=== PATIENT | female | born 1965 | race Caucasian/White ===

== ENCOUNTER 2017-07-07 11:34 | Emergency (ER) | payer OTHER ==
[~2017-07-07] VITALS: Ht 152.4 cm; Wt 66.4 kg
[~2017-07-07 11:34] MED LIST: ALBINS/ NEB; BSP/10 PO; CHLO1TAB PO; CHLO50TA6 PO; CITA40TA4 PO; CLON1TAB3 PO; DXP/75 PO; IMIP50TA3 PO; IMT50 PO; LPT40 PO; POTA1POW PO; PRAZ5CAP2 PO; RBX500 PO; RMRS/45 PO; SPRIN/30 INH; TYL325X PO; VNTHFA/IN INH
[2017-07-07 11:38] VITALS: TEMP 36.7; Ht 152.4 cm; Wt 66.4 kg
--- NOTE | 2017-07-07 12:31 | DIAGNOSTIC IMAGING REPORT ---
R FOOT MIN 3 VIEWS ROUTINE CLINICAL HISTORY: 52 years-old Female presenting with R foot pain. TECHNIQUE: Frontal, oblique, and lateral views of the right foot were obtained. COMPARISON: None. FINDINGS: Irregularity of the medial base of the first metatarsal. Additionally nondisplaced fractures of the second and third metatarsals evident. No gross widening of the interval at the bases of the first and second metatarsals to suggest a Lisfranc injury. Soft tissue swelling over the medial dorsum of the foot. IMPRESSION: Nondisplaced fractures of the bases of the first through third metatarsals. No malalignment at this time to suggest radiographic evidence of Lisfranc ligament injury. Electronically signed by: José Manuel Chen M.D. 07/07/2017 12:29 PM Dictated Date/Time: 07/07/2017 12:27 PM
[2017-07-07] MEDS ORDERED: MECL1TAB42 PO (12:51)
[2017-07-07] MEDS ORDERED: HYDR-5688 PO (12:51)
[2017-07-07] MEDS ORDERED: HYDROCODONE/ACETAMIN 5/325MG TAB PO STA (12:55)
[2017-07-07 13:06] VITALS: BP 127/92; PULSE 70; O2SAT 100
--- NOTE | 2017-07-07 21:16 | EMERGENCY ROOM VISIT NOTE ---
History First contact with patient: 11:44 Chief Complaint: FOOT PAIN Stated Complaint: SEVERE RIGHT FOOT PAIN History of Present Illness The patient is a 52 year old female who presents to the Emergency Room with complaints of severe right foot pain. The patient reports that she just moved to [place] from [place]. The patient reports history of vertigo. She reports that she did not have any meclizine left from her move. She has been experiencing dizzy symptoms consistent with vertigo. The patient reports that she fell last Saturday, and was seen at the [place] emergency department where an extensive workup was performed, including x-rays of the foot which showed "one bone fracture". The patient was dispensed a postop shoe, and instructed to follow-up with orthopedics for further management. The patient reports that she was unable to find a local PCP by Saturday. She plans to go to the walk-in clinic at a local [facility] office tomorrow. The patient reports that she was provided a prescription for Percocet which is upsetting her stomach. She reports that she has taken hydrocodone in the past with fewer side effects. The patient reports prior chronic pain issues, but denies being under any pain management contract in [place]. The patient reports that she cannot use crutches because of her vertigo, and has to walk on the foot. She rates her discomfort a 9 out of 10. She denies any other injuries from her fall that were not evaluated at the [place] emergency department. Review of Systems 10 system review was performed and was negative except for pertinent positives and negatives as indicated in history of present illness Past Medical/Surgical History Medical Problems: (1) Arthritis (2) Asthma (3) Bronchitis (4) Chest pain (5) Chronic back pain (6) COPD (chronic obstructive pulmonary disease) (7) Pneumonia Family History FH: cancer FH: diabetes mellitus FH: heart disease FHx: lung disease Social History Smoking Status: Current Every Day Smoker Alcohol Use: none Marital Status: other Housing Status: lives alone Occupation Status: unemployed, disabled Current/Historical Medications Scheduled Atorvastatin (Lipitor), 40 MG PO DAILY Buspirone HCl (Buspirone HCl), 20 MG PO TID Chlorpromazine Hcl (Thorazine), 50 MG PO QAM Chlorpromazine Hcl (Chlorpromazine Hcl), 200 MG PO HS Citalopram (Citalopram Hydrobromide), 40 MG PO QAM Doxepin Hcl (Doxepin), 75 MG PO HS Imipramine HCl (Imipramine HCl), 100 MG PO HS Methocarbamol (Methocarbamol), 500 MG PO TID Mirtazapine (Mirtazapine), 45 MG PO HS Potassium Chloride Pwd (Klor-Con Pwd), 20 MEQ PO BID Prazosin Hcl (Prazosin), 10 MG PO HS Tiotropium [place] (Spiriva Handihaler), 1 PUFF INH DAILY Scheduled PRN Acetaminophen (Tylenol), 650 MG PO Q4H PRN for Pain or Fever Albuterol Hfa (Ventolin Hfa), 2 PUFFS INH UD PRN for SOB/Wheezing Albuterol Sulf (Proventil 0.083% 2.5MG/3ML), 2.5 MG NEB TID PRN for SOB/Wheezing Clonazepam (Klonopin), 1 MG PO QID PRN for Anxiety Hydrocodone/Acetaminophen 5MG/325MG ([place] 5MG/325MG), 1-2 TABLET PO Q4H PRN for Pain Meclizine Hcl (Meclizine Hcl), 1 TAB PO TID PRN for Dizziness or Vertigo Sumatriptan Succinate (Sumatriptan Succinate), 50 MG PO UD PRN for Migraine Physical Exam Vital Signs Date Time Temp Pulse Resp B/P (MAP) Pulse Ox O2 Delivery O2 Flow Rate FiO2 07/07/17 13:06 70 17 127/92 100 07/07/17 11:38 36.7 93 18 129/70 94 Room Air Physical Exam CONSTITUTIONAL: Healthy and well nourished. Alert and oriented X 3 with positive affect. Patient appears in mild to moderate discomfort. HEENT: Normocephalic, atraumatic. Pupils equal, round and reactive. NECK: Full active range of motion without discomfort. RESPIRATORY: Clear to auscultation bilaterally with no wheezing, crackles, rhonchi or stridor. CARDIOVASCULAR: Regular rate and rhythm with no murmurs, rubs or gallops. GASTROINTESTINAL: Bowel sounds present in all quadrants. Soft and nontender to palpation. MUSCULOSKELETAL: Examination of the right foot shows notable edema and ecchymosis. She is tender throughout the entire medial midfoot region. She has no focal tenderness to palpation about the ankle with negative anterior draw. No tenderness to palpation of the phalanges, calcaneus, Achilles tendon or proximal leg. Pedal pulses are intact. INTEGUMENTARY: No rash or other significant dermatologic conditions noted. NEUROLOGIC: Right foot and toes are sensory intact. Medical Decision & Procedures ER Provider Diagnostic Interpretation: My interpretation of right foot x-rays shows fractures at the base of the first , second and third metatarsals. Radiologist report is as follows: R FOOT MIN 3 VIEWS ROUTINE CLINICAL HISTORY: 52 years-old Female presenting with R foot pain. TECHNIQUE: Frontal, oblique, and lateral views of the right foot were obtained. COMPARISON: None. FINDINGS: Irregularity of the medial base of the first metatarsal. Additionally nondisplaced fractures of the second and third metatarsals evident. No gross widening of the interval at the bases of the first and second metatarsals to suggest a Lisfranc injury. Soft tissue swelling over the medial dorsum of the foot. IMPRESSION: Nondisplaced fractures of the bases of the first through third metatarsals. No malalignment at this time to suggest radiographic evidence of Lisfranc ligament injury. Medications Administered Medications (Trade) Dose Ordered Sig/Elie Route Start Time Stop Time Status Last Admin Dose Admin Acetaminophen/ Hydrocodone Bitart ([place] 5/325 Tab) 1 tab ONE STAT PO 07/07/17 12:55 07/07/17 12:57 DC 07/07/17 13:04 1 TAB ED Course Patient history and physical exam were performed. Nurse's notes were reviewed. Vital signs were reviewed and and were normal. The patient refused any analgesics on initial exam. X-rays of the right foot shows fractures at the base of the first through third metatarsals. The patient reports that she is unable to use crutches because of her vertigo. Fracture boot was therefore applied. The patient reports that she will follow-up tomorrow with her family doctor for orthopedic referral. She did request prescriptions for meclizine and hydrocodone. These were provided for the patient. She was also encouraged to elevate the foot for swelling and pain. The patient voiced understanding of all discharge instructions, and rated her pain a 7 out of 10 at the time of discharge. The patient was administered hydrocodone just prior to discharge. Medical Decision [place] Drug Monitoring Program Search Results: patient reviewed within database, no issues identified Medication Reconcilliation Current Medication List: was personally reviewed by me Blood Pressure Screening Patient's blood pressure: Normal blood pressure Impression Primary Impression: Multiple closed fractures of metatarsal bone of right foot Additional Impression: History of vertigo Departure Information Prescriptions Hydrocodone/Acetaminophen 5MG/325MG ([place] 5MG/325MG) Tab 1-2 TABLET PO Q4H Y for Pain, #15 TAB For Initial Treatment Prov: Lopez Marshall PA 07/07/17 Meclizine Hcl (MECLIZINE HCL) 25 Mg Tab 1 TAB PO TID Y for Dizziness or Vertigo, #15 TAB Prov: Lopez Marshall PA 07/07/17 Referrals Ruddy Grajeda PA-C (PCP) Patient Instructions My [facility] Problem Qualifiers Primary Impression: Multiple closed fractures of metatarsal bone of right foot Encounter type: initial encounter Qualified Codes: S92.301A - Fracture of unspecified metatarsal bone(s), right foot, initial encounter for closed fracture
== END 2017-07-07 13:07 | disposition home or self-care (01) ==
LOC: C.EDB 11:36 → C.EDD 13:07
DX: S92.301A Fracture of unspecified metatarsal bone(s), right foot, initial encounter for closed fracture (principal); R42 Dizziness and giddiness; W19.XXXA Unspecified fall, initial encounter; M19.90 Unspecified osteoarthritis, unspecified site; J45.909 Unspecified asthma, uncomplicated; J44.9 Chronic obstructive pulmonary disease, unspecified; F17.200 Nicotine dependence, unspecified, uncomplicated

== ENCOUNTER 2017-08-14 17:36 | Emergency (ER) | payer OTHER ==
[~2017-08-14] VITALS: Ht 152.4 cm; Wt 60.7 kg
[~2017-08-14 17:36] MED LIST changes: +HYDR-5688 PO; +MECL1TAB42 PO
[2017-08-14 17:53] VITALS: TEMP 36.9; Ht 152.4 cm; Wt 60.7 kg
[2017-08-14] MEDS ORDERED: DEXAMETHASONE INJ 10 MG in SYRINGE 0 ML IV STA (18:12)
[2017-08-14] MEDS ORDERED: PROCHLORPERAZINE 5 MG/ML 2 ML VIAL IV STA (18:12)
[2017-08-14] MEDS ORDERED: SODIUM CHLORIDE 0.9% 1000ML 1,000 ML IV STA (18:12)
[2017-08-14] MEDS ORDERED: DiphenhydrAMINE HCL 50 MG/ML VIAL IV STA (18:12)
[2017-08-14] MEDS ORDERED: MAGNESIUM SULFATE 1GM / D5W 1 GM BAG IV STA (18:12)
[2017-08-14] MEDS ORDERED: CIPROFLOXACIN 500 MG TAB PO STA (18:16)
[2017-08-14] MEDS ORDERED: OFLOXACIN 0.3% OP SOLN 5 ML BTL OP STA (18:16)
--- NOTE | 2017-08-14 18:21 | EMERGENCY ROOM VISIT NOTE ---
History Report prepared by Karel: Partha Silveira Under the Supervision of: Dr. Jc Lackey M.D. First contact with patient: 18:04 Chief Complaint: HEAD PAIN Stated Complaint: HEAD,NECK,AND JAW PAIN History of Present Illness The patient is a 52 year old female who presents to the Emergency Room with complaints of constant right ear pain beginning four months ago. The patient states that she has been having right ear pain, as well as jaw pain, neck pain, and the inability to hear out of her right ear for the last four months. She also complains of ringing in her right ear that feels like "someone in stabbing her." She rates her pain as a 9/10. She notes that she randomly woke up one morning with right ear ringing four months ago. She reports that she had a CT done two weeks ago which showed a lump on her left lymph node. The patient states that she has an appointment with oncology tomorrow. She notes that she has an ENT appointment in a week. She reports that she has not been able to eat or sleep for the last five days due to her pain. The patient states that she took Tylenol two and a half hours ago with no relief of her symptoms. She notes that she smokes cigarettes. Source of History: patient Onset: four months ago Position: ear (right) Symptom Intensity: 9/10 Timing: constant Associated Symptoms: + neck pain Note: The patient also complains of jaw pain, the inability to hear out of her right ear, and right ear ringing. Review of Systems See HPI for pertinent positives & negatives. A total of 10 systems reviewed and were otherwise negative. Past Medical & Surgical Medical Problems: (1) Arthritis (2) Asthma (3) Bronchitis (4) Chest pain (5) Chronic back pain (6) COPD (chronic obstructive pulmonary disease) (7) Ectopic (8) Pneumonia Surgical Problems: (1) History of appendectomy (2) History of cholecystectomy (3) History of hysterectomy Family History FH: cancer FH: diabetes mellitus FH: heart disease FHx: lung disease Gallbladder disease Seizures Social History Smoking Status: Current Every Day Smoker Alcohol Use: none Marital Status: other Housing Status: lives alone Occupation Status: disabled Current/Historical Medications Scheduled Acetaminophen (Acetaminophen Extra Stren), 1,000 MG PO q3-4h Buspirone HCl (Buspirone HCl), 20 MG PO TID Chlorpromazine Hcl (Chlorpromazine Hcl), 200 MG PO HS Ciprofloxacin Hcl (Cipro), 1 TAB PO BID Citalopram (Citalopram Hydrobromide), 40 MG PO QAM Mirtazapine (Mirtazapine), 45 MG PO HS Prazosin Hcl (Prazosin), 10 MG PO HS Tiotropium [place] (Spiriva Handihaler), 1 PUFF INH DAILY Scheduled PRN Albuterol Hfa (Ventolin Hfa), 2 PUFFS INH UD PRN for SOB/Wheezing Clonazepam (Klonopin), 1 MG PO QID PRN for Anxiety Meclizine Hcl (Meclizine Hcl), 25 MG PO TID PRN for vertigo Sumatriptan Succinate (Sumatriptan Succinate), 100 MG PO UD PRN for Migraine Allergies Coded Allergies: Ibuprofen (Unverified Allergy, Severe, SWELLING/SHORTNESS OF BREATH, ) Latex1 -Allergic Contact Dermititis (Unverified Allergy, Intermediate, ) Aspirin (Verified Allergy, Unknown, 08/14/17) Ketorolac Tromethamine (Verified Allergy, Unknown, swelling, nausea, ) Naproxen (Verified Allergy, Unknown, 08/14/17) Quetiapine (Unverified Allergy, Unknown, U/K, 08/14/17) Sulfa Drugs (Verified Allergy, Unknown, 08/14/17) Sulfamethoxazole (Verified Allergy, Unknown, 08/14/17) Trimethoprim (Verified Allergy, Unknown, 08/14/17) Physical Exam Vital Signs Date Time Temp Pulse Resp B/P (MAP) Pulse Ox O2 Delivery O2 Flow Rate FiO2 08/14/17 21:32 73 16 136/74 97 Room Air 08/14/17 20:13 67 15 109/66 97 Room Air 08/14/17 20:10 73 08/14/17 18:58 75 17 97/56 98 Room Air 08/14/17 17:53 36.9 88 16 104/68 96 Room Air Physical Exam GENERAL: Awake, alert, well-appearing, in no acute distress HENT: Normocephalic, atraumatic. Oropharynx unremarkable. No evidence of meningitis or encephalitis on exam, right ear canal is injected and inflamed. EYES: Normal conjunctiva. Sclera non-icteric. NECK: Supple. No nuchal rigidity. FROM. No JVD. RESPIRATORY: Clear to auscultation. CARDIAC: Regular rate, normal rhythm. Extremities warm and well perfused. Pulses equal. ABDOMEN: Soft, non-distended. No tenderness to palpation. No rebound or guarding. No masses. RECTAL: Deferred. MUSCULOSKELETAL: Chest examination reveals no tenderness. The back is symmetrical on inspection without obvious abnormality. There is no CVA tenderness to palpation. No joint edema. LOWER EXTREMITIES: Calves are equal size bilaterally and non-tender. No edema. No discoloration. NEURO: Normal sensorium. No sensory or motor deficits noted. SKIN: No rash or jaundice noted. Medical Decision & Procedures Laboratory Results 08/14/17 18:55 Red Blood Count 4.11, Mean Corpuscular Volume 85.6, Mean Corpuscular Hemoglobin 28.5, Mean Corpuscular Hemoglobin Concent 33.2, Mean Platelet Volume 9.5, Neutrophils (%) (Auto) 55.1, Lymphocytes (%) (Auto) 33.7, Monocytes (%) (Auto) 9.4, Eosinophils (%) (Auto) 1.0, Basophils (%) (Auto) 0.4, Neutrophils # (Auto) 4.24, Lymphocytes # (Auto) 2.59, Monocytes # (Auto) 0.72, Eosinophils # (Auto) 0.08, Basophils # (Auto) 0.03 08/14/17 18:55 Test 08/14/17 18:55 08/14/17 19:15 White Blood Count 7.69 K/uL (4.8-10.8) Red Blood Count 4.11 M/uL (4.2-5.4) Hemoglobin 11.7 g/dL (12.0-16.0) Hematocrit 35.2 % (37-47) Mean Corpuscular Volume 85.6 fL (80-100) Mean Corpuscular Hemoglobin 28.5 pg (25-34) Mean Corpuscular Hemoglobin Concent 33.2 g/dl (32-36) Platelet Count 234 K/uL (130-400) Mean Platelet Volume 9.5 fL (7.4-10.4) Neutrophils (%) (Auto) 55.1 % Lymphocytes (%) (Auto) 33.7 % Monocytes (%) (Auto) 9.4 % Eosinophils (%) (Auto) 1.0 % Basophils (%) (Auto) 0.4 % Neutrophils # (Auto) 4.24 K/uL (1.4-6.5) Lymphocytes # (Auto) 2.59 K/uL (1.2-3.4) Monocytes # (Auto) 0.72 K/uL (0.11-0.59) Eosinophils # (Auto) 0.08 K/uL (0-0.5) Basophils # (Auto) 0.03 K/uL (0-0.2) RDW Standard Deviation 55.5 fL (36.4-46.3) RDW Coefficient of Variation 17.9 % (11.5-14.5) Immature Granulocyte % (Auto) 0.4 % Immature Granulocyte # (Auto) 0.03 K/uL (0.00-0.02) Anion Gap 5.0 mmol/L (3-11) Est Creatinine Clear Calc Drug Dose 57.0 ml/min Estimated GFR () 80.8 Estimated GFR (Non- 69.8 BUN/Creatinine Ratio 15.0 (10-20) Calcium Level 8.5 mg/dl (8.5-10.1) Total Bilirubin 0.2 mg/dl (0.2-1) Direct Bilirubin < 0.1 mg/dl (0-0.2) Aspartate Amino Transf (AST/SGOT) 17 U/L (15-37) Alanine Aminotransferase (ALT/SGPT) 21 U/L (12-78) Alkaline Phosphatase 113 U/L (45-117) Total Protein 7.1 gm/dl (6.4-8.2) Albumin 3.4 gm/dl (3.4-5.0) Lipase 193 U/L (73-393) Urine Color YELLOW Urine Appearance CLEAR (CLEAR) Urine pH 6.5 (4.5-7.5) Urine Specific [place] 1.005 (1.000-1.030) Urine Protein NEG (NEG) Urine Glucose (UA) NEG (NEG) Urine Ketones NEG (NEG) Urine Occult Blood NEG (NEG) Urine Nitrite NEG (NEG) Urine Bilirubin NEG (NEG) Urine Urobilinogen NEG (NEG) Urine Leukocyte Esterase NEG (NEG) Labs reviewed by ED physician. Medications Administered Medications (Trade) Dose Ordered Sig/Elie Route Start Time Stop Time Status Last Admin Dose Admin Sodium Chloride 1,000 ml @ 999 mls/hr Q1H1M STAT IV 08/14/17 18:12 08/14/17 19:12 DC 08/14/17 19:00 999 MLS/HR Magnesium Sulfate (Magnesium Sulfate 1gm / D5W) 1 gm NOW STAT IV 08/14/17 18:12 08/14/17 18:16 DC 08/14/17 19:19 1 GM Prochlorperazine Edisylate (Compazine Inj) 10 mg NOW STAT IV 08/14/17 18:12 08/14/17 18:16 DC 08/14/17 19:19 10 MG Diphenhydramine HCl (Benadryl Inj) 50 mg NOW STAT IV 08/14/17 18:12 08/14/17 18:16 DC 08/14/17 19:19 50 MG Ofloxacin (Ocuflox 0.3% Oph Soln) 10 drops NOW STAT OP 08/14/17 18:16 08/14/17 18:19 DC 08/14/17 20:12 10 DROPS Ciprofloxacin (Cipro Tab) 500 mg NOW STAT PO 08/14/17 18:16 08/14/17 18:19 DC 08/14/17 19:19 500 MG Dexamethasone Sodium Phosphate (Dexamethasone Inj Pf) 10 mg STK-MED ONCE .ROUTE 08/14/17 19:14 08/14/17 19:15 DC 08/14/17 19:19 10 MG Valproate Sodium 500 mg/Dextrose 55 ml @ 55 mls/hr NOW STAT IV 08/14/17 20:03 08/14/17 21:02 DC 08/14/17 20:45 55 MLS/HR Promethazine HCl 25 mg/Sodium Chloride 51 ml @ 204 mls/hr NOW STAT IV 08/14/17 20:03 08/14/17 20:17 DC 08/14/17 20:25 204 MLS/HR ED Course 1809: Past medical records reviewed. The patient was evaluated in room C11. A complete history and physical examination was performed. 1811: Benadryl Inj 50mg IV, Compazine Inj 10mg IV, Dexamethasone Sodium Phosphate 10mg/Syringe 2.5ml @ 1 mls/min IV, Magnesium Sulfate 1gm IV, Sodium Chloride 1000 ml @ 999 mls/hr 1816: Ciprofloxacin 500mg PO, Ofloxacin 10 drops OP 1919: I reevaluated and updated the patient. 2002: Promethazine HCl 25 mg/Sodium Chloride 51 ml @ 204 mls/hr IV, Valproate Sodium 500mg/Dextrose 55ml @ 55 mls/hr IV 2050: I rechecked the patient. 2139: Upon reexamination the patient is stable. I discussed results and treatment plan with the patient. She verbalizes agreement and understanding. The patient is ready for discharge. Medical Decision Differential diagnosis: Etiologies such as migraine headache, meningitis, sinusitis, CO exposure, ICH, SAH, infection, tumor, headache, sinus thrombosis, arterial dissection, as well as others were entertained. This is a 52-year-old female who presents emergency department complaining of right ear pain. Patient has no evidence of meningitis or encephalitis on examination. The patient already has follow-up scheduled with ear nose and throat as well as oncology. I offered to do diagnostic studies with the patient specifically CAT scan of the head and neck however the patient reports that she is already had studies done at [place] and she is just here for pain control. She notes that she is allergic to Toradol. For this reason the patient was given Decadron, Benadryl, Compazine. Repeat examination revealed improvement the patient's symptoms. The patient was also given eardrops as well as being started on ciprofloxacin for what appears to be an external otitis externa. She does not have an elevation in her white blood cell count. Repeat examination revealed much improvement in the patient's symptoms. The patient also received valproic acid as well as Phenergan. Medication Reconcilliation Current Medication List: was personally reviewed by me Blood Pressure Screening Patient's blood pressure: Elevated blood pressure Blood pressure disposition: Elevated BP felt to be situational Impression Primary Impression: Ear pain, right Scribe Attestation The scribe's documentation has been prepared under my direction and personally reviewed by me in its entirety. I confirm that the note above accurately reflects all work, treatment, procedures, and medical decision making performed by me. Departure Information Dispostion Home / Self-Care Prescriptions Ciprofloxacin Hcl (CIPRO) 500 Mg Tab 1 TAB PO BID for 10 Days, #20 TAB Prov: Jc Lackey MD 08/14/17 Referrals Ruddy Grajeda PA-C (PCP) Forms HOME CARE DOCUMENTATION FORM, IMPORTANT VISIT INFORMATION, WORK / SCHOOL INSTRUCTIONS Patient Instructions My [facility] Additional Instructions Use ten drops of ear drops/ day for 10 days Keep appointments as scheduled You have been examined and treated today on an emergency basis only. This is not a substitute for, or an effort to provide, complete comprehensive medical care. It is impossible to recognize and treat all injuries or illnesses in a single emergency department visit. It is therefore important that you follow up closely with your PCP. Call as soon as possible for an appointment. Thank you for your time and consideration. I look forward to speaking with you again soon. Please don't hesitate to call us if you have any questions.
[2017-08-14] MEDS ORDERED: ACET-1222 PO (18:59)
[2017-08-14] MEDS ORDERED: MECL1TAB42 PO (19:06)
[2017-08-14] MEDS ORDERED: DEXAMETHASONE **PF** INJ 10 MG/ML VIAL ONE (19:14)
[2017-08-14 19:28] LABS: BASO % 0.4 %; BASO ABS # 0.03 K/uL (0-0.2); EOS ABS # 0.08 K/uL (0-0.5); HEMATOCRIT 35.2 % (37-47); HEMOGLOBIN 11.7 g/dL (12.0-16.0); IG# 0.03 K/uL (0.00-0.02); LYMPH % 33.7 %; LYMPH ABS # 2.59 K/uL (1.2-3.4); MEAN CELL VOLUME 85.6 fL (80-100); MEAN CORPUSCULAR HEMOGLOBIN 28.5 pg (25-34); MEAN CORPUSCULAR HGB CONC 33.2 g/dl (32-36); MEAN PLATELET VOLUME 9.5 fL (7.4-10.4); MONO % 9.4 %; MONO ABS # 0.72 K/uL (0.11-0.59); NEUT % 55.1 %; NEUT ABS # 4.24 K/uL (1.4-6.5); PLATELET COUNT 234 K/uL (130-400); RED CELL DISTRIBUTION WIDTH CV 17.9 % (11.5-14.5); RED CELL DISTRIBUTION WIDTH SD 55.5 fL (36.4-46.3); WHITE BLOOD COUNT 7.69 K/uL (4.8-10.8)
[2017-08-14 19:46] LABS: ALBUMIN 3.4 gm/dl (3.4-5.0); ALKALINE PHOSPHATASE 113 U/L (45-117); ALT/SGPT 21 U/L (12-78); AST/SGOT 17 U/L (15-37); BLOOD UREA NITROGEN 14 mg/dl (7-18); CALCIUM 8.5 mg/dl (8.5-10.1); CARBON DIOXIDE 28 mmol/L (21-32); CREATININE 0.94 mg/dl (0.60-1.20); GLUCOSE 92 mg/dl (70-99); LIPASE 193 U/L (73-393); SODIUM 138 mmol/L (136-145); TOTAL PROTEIN 7.1 gm/dl (6.4-8.2)
[2017-08-14] MEDS ORDERED: PROMETHAZINE HCL INJ 25 MG in SODIUM CHLORIDE 0.9% 50ML 50 ML IV STA (20:03)
[2017-08-14] MEDS ORDERED: VALPROATE SOD IV 500 MG in DEXTROSE 5% 50ML 50 ML IV STA (20:03)
[2017-08-14] MEDS ORDERED: CIPR-255 PO (21:04)
[2017-08-14 21:32] VITALS: BP 136/74; PULSE 73; O2SAT 97
== END 2017-08-14 21:58 | disposition home or self-care (01) ==
LOC: C.EDB 17:37 → C.EDC 21:58
DX: H92.01 Otalgia, right ear (principal); F17.210 Nicotine dependence, cigarettes, uncomplicated; J45.909 Unspecified asthma, uncomplicated; M19.90 Unspecified osteoarthritis, unspecified site; M54.9 Dorsalgia, unspecified; G89.29 Other chronic pain; J44.9 Chronic obstructive pulmonary disease, unspecified; Z87.01 Personal history of pneumonia (recurrent); Z90.49 Acquired absence of other specified parts of digestive tract; Z90.710 Acquired absence of both cervix and uterus; Z80.9 Family history of malignant neoplasm, unspecified; Z83.3 Family history of diabetes mellitus; Z82.0 Family history of epilepsy and other diseases of the nervous system; Z83.79 Family history of other diseases of the digestive system; Z79.899 Other long term (current) drug therapy; Z88.6 Allergy status to analgesic agent; Z88.2 Allergy status to sulfonamides; Z88.8 Allergy status to other drugs, medicaments and biological substances; Z91.040 Latex allergy status